=== PATIENT | female | born 1995 | race Caucasian/White ===

== ENCOUNTER 2024-07-03 07:38 | Inpatient (IN) ==
[2024-07-03] MEDS ORDERED: LIDOCAINE 1% LOCAL 20 ML VIAL INFIL PRN (07:47)
[2024-07-03] MEDS ORDERED: CALCIUM CARBONATE 500 MG CHEWABLE TAB PO PRN (07:47)
[2024-07-03] MEDS ORDERED: OXYTOCIN 30 UNITS/NSS 30 UNITS/500 ML BAG IV PRN (07:47)
[2024-07-03] MEDS ORDERED: Patient's ALLERGY Info needs ENTERED SCH (08:00)
[2024-07-03 08:24] LABS: Hematocrit (blood only) 37.8 % (37.0-47.0); Hemoglobin 13.3 g/dl (12.0-16.0); Mean Corpuscular Hemoglobin 30.8 pg (25.0-34.0); Mean Corpuscular Hgb Conc 35.2 g/dL (32.0-36.0); Mean Corpuscular Volume 87.5 fL (80.0-100.0); Mean Platelet Volume 11.2 fL (9.4-12.4); Platelet Count 196 K/uL (130-400); RDW Coefficient of Variation 12.1 % (11.5-14.5); RDW Standard Deviation 38.7 fL (36.4-46.3); Red Blood Count 4.32 M/uL (4.20-5.40); White Blood Count 10.68 K/ul (4.8-10.8)
[2024-07-03] MEDS: LACTATED RINGER'S 1,000 ML IV PRN (08:30)
--- NOTE | 2024-07-03 08:48 | History & Physical Report ---
Date of Service July 03, 2024 Assessment & Plan (1) Supervision of normal intrauterine in primigravida: (2) Gestational diabetes mellitus (GDM) affecting , antepartum: (3) Encounter for induction of labor: Plan Portillo bulb placed, pit started, pt desires epidural Rh+, gbs neg, ri, FHT cat 1 Admission and Anticipated Discharge Date Admission Date: July 03, 2024 History of Present Illness Primary Care Provider: Chava Verde MD Patient is a 28 y/o female G1 currently at 39w 3d with an ANDRES 07/06/24 as determined by LMP who is here for induction of labor. Her was complicated by gestational cholestasis and GDM. She has had regular appointments with OB. She denies fevers, fatigue, KOENIG, SOB, chest pain, leg swelling, or n/v exceeding baseline -related symptoms. Mild contractions; movement present; no fluid loss or bloody show External FHT and external uterine monitors used; category 1 tracing (baseline 145, mod variability, +acels, no decels) Blood type: A+ Antibody screen: Neg 1h GTT: 150 (04/23) GBS: Neg Rubella: Immune VDRL/RPR: Non-reactive Gonorrhea: Not detected Chalmydia: Not detected HIV: Non-reactive HbSAg: Non-reactive Allergies Allergy/AdvReac Type Severity Reaction Status Date / Time amoxicillin Allergy Intermediate Hives Verified 07/03/24 09:13 Home Medications Medication Instructions Recorded Confirmed Type acetone (urine) test (Ketone Urine #50 ea 05/11/24 07/02/24 Rx Test strips) blood sugar diagnostic (OneTouch #150 ea 05/11/24 07/02/24 Rx Verio test strips) blood-glucose meter (OneTouch #1 ea 05/11/24 07/02/24 Rx Verio Reflect Meter) lancets 33 gauge (OneTouch Delica #150 ea 05/11/24 07/02/24 Rx Plus Lancet) [id number] 1 mg 1 tab PO 1XD 07/03/24 07/03/24 History tablet Past Med/Surg History Problem List (Updated 07/03/24 @ 09:09 by Shannon Pacheco MD) Encounter for induction of labor Gestational diabetes mellitus (GDM) affecting , antepartum Encounter for anatomic survey Supervision of normal intrauterine in primigravida No significant past medical history Surgical History History of wisdom tooth extraction Pectus excavatum repaired Family History Grandmother (Maternal) Diabetes Denies family history of Ovarian cancer Breast cancer Colorectal cancer Uterine cancer Social History Smoking Status: Never smoker Second Hand Exposure: No; Do You Dip or Chew Tobacco: No; Hx Alcohol Use: No Hx Substance Use: No Preferred Language: Urdu Communication Ability: Effective Barge Engineer Required: No Beliefs That Will Affect Care: None marital status: marital status details: Deonte (29) [phone] Current Living Situation: Spouse Current Living Situation Comment: Pt lives with Zachary and dog Ayr current occupational status: employed current occupation: [employer] @ [employer]. Other Information That Helps Us Care for You: No Feels Safe at Home: Yes Safety Concerns: Feels Safe At This Time Assistive Devices: None Physical Exam 2 Physical Exam: General: Alert and oriented. No acute distress CV: Regular rate and rhythm. No murmurs. Respiratory: CTAB. No rhonchi, wheezes, or crackles. No increased work of breathing. Abdomen: Gravid: Soft, nontender upon palpation Pelvic: 1 / 75% / -2 / mid, soft, per Dr. Lindsay Lower extremities: NO LE edema. No deep calf pain. Results & Data Results & Data Vital Signs (Past 12 Hours) Vital Signs Temp Pulse Resp BP O2 Del Method 07/03/24 08:10 37.0 C 16 Room Air 07/03/24 07:46 101 H 127/79 Laboratory Results 07/03/24 08:07 8 AST: 21 ALT: 28 ALP: 195 (H) 07/01 Total bile acid: 10.3 (H) Cholic acid: 7.5 Deoxycholic: 0.6 Chenodeoxy: 2.2 Supervising Physician Co-Signing Physician Notes Resident Physician Supervision Note: I interviewed and examined the patient. Discussed with Dr. Schmitz and agree with findings and plan as documented in the note. Any exceptions or clarifications are listed here: Patient originally evaluated by me. fetus category one tracing occasional contractions. Permission received for portillo bulb placement. Patient placed in stirrups, cx was as noted in note. Speculum placed. portillo threaded through the cervix. Balloon filled with 30cc sterile water. Speculum removed. Tolerated procedure well. Will also be starting pitocin. Documented By: Rylie Lindsay MD, FACOG Resident Activity Tracking Resident Involvement: Resident Care Provided Care Provided: OB Delivery
[2024-07-03] MEDS ORDERED: Nursing to Pharmacy Communication SCH (09:00)
[2024-07-03] MEDS: OXYTOCIN 30 UNITS/NSS 30 UNITS/500 ML BAG IV PRN (09:24)
--- NOTE | 2024-07-04 05:48 | Labor Progress Brief Note ---
Date of Service July 04, 2024 Update slow progress with Pitocin she received a cervical Crowley in the morning went up to 20 milliunits of Pitocin we took a brief break of Pitocin to reset receptors and then restarted cervix exam and she has 4 cm had is finally well applied to the cervix artificial rupture of membranes for clear fluid 4 cm 80% - 3 patient will likely get an epidural discussed some progress although she is not truly in active labor yet so continue the current plan Assessment & Plan Admission and Anticipated Discharge Date Admission Date: July 03, 2024 Results & Data Vital Signs (Past 12 Hours) Vital Signs Temp Pulse Resp BP 07/04/24 04:41 68 110/64 07/04/24 03:47 98.1 F 65 16 112/67 07/04/24 02:41 72 118/63 07/04/24 02:02 76 111/57 L 07/04/24 00:41 76 16 115/56 L 07/03/24 23:39 72 117/74 07/03/24 22:54 97.9 F 69 16 105/61 07/03/24 20:59 64 18 119/63 07/03/24 20:00 65 117/69 07/03/24 18:58 98.2 F 75 16 121/70 07/03/24 18:30 18 07/03/24 18:30 18 07/03/24 18:00 74 113/70 Coding Level of Care Code None
[2024-07-04] MEDS ORDERED: diphenhydrAMINE 50 MG/ML VIAL IV PRN (06:01)
[2024-07-04] MEDS ORDERED: LIDOCAINE 2% MPF LOCAL 5 ML VIAL EPI PRN (06:01)
[2024-07-04] MEDS ORDERED: fentaNYL citrate PF 100 MCG/2 ML VIAL EPI PRN (06:01)
[2024-07-04] MEDS ORDERED: fentANYL 2 MCG/ML BUPIVacaine 0.125%-NSS 100ML BAG EPI PRN (06:01)
[2024-07-04] MEDS ORDERED: NALBUPHINE HCL 5 MG in SYRINGE 0 ML IV PRN (06:01)
[2024-07-04] MEDS ORDERED: ePHEDrine sulfate 50 MG/ML AMP IV PRN (06:01)
[2024-07-04] MEDS ORDERED: BUPIVACAINE 0.25% PF 30 ML VIAL EPI PRN (06:01)
[2024-07-04] MEDS ORDERED: SODIUM CHLORIDE 0.9% PF INJ 10 ML VIAL EPI PRN (06:01)
[2024-07-04] MEDS ORDERED: NALOXONE HCL 0.4 MG/1 ML VIAL/CARP IV PRN (06:01)
[2024-07-04] MEDS ORDERED: NALOXONE HCL 1 MG in SODIUM CHLORIDE 0.9% 1,000 ML IV PRN (06:01)
[2024-07-04] MEDS ORDERED: ROPIVACAINE 0.5% PF 5 MG/ML 20 ML VIAL EPI PRN (06:01)
--- NOTE | 2024-07-04 06:05 | Anesthesiology Consultation ---
Date of Service July 04, 2024 Assessment & Plan Chart Review Chart Review: Patient NOT seen in Pre Admission Testing and Acceptable Risk for Labor Epidural Consults Requested none ASA ASA2 Proposed Anesthesia Anesthesia Type: Labor Epidural Risk / Benefits Reviewed With: PT / POA / Parent / Guardian, Accepts Plan and Informed Consent Obtained History Height/Weight Height: 5 ft 2 in Weight: 60.328 kg Allergies Allergy/AdvReac Type Severity Reaction Status Date / Time amoxicillin Allergy Intermediate Hives Verified 07/03/24 09:13 Medications Home Medications Medication Instructions Recorded Confirmed Last Taken acetone (urine) test (Ketone Urine #50 ea 05/11/24 07/02/24 Unknown Test strips) blood sugar diagnostic (OneTouch #150 ea 05/11/24 07/02/24 Unknown Verio test strips) blood-glucose meter (OneTouch #1 ea 05/11/24 07/02/24 Unknown Verio Reflect Meter) lancets 33 gauge (OneTouch Delica #150 ea 05/11/24 07/02/24 Unknown Plus Lancet) [id number] 1 mg 1 tab PO 1XD 07/03/24 07/03/24 07/02/24 21:30 tablet Active Medications Generic Name Dose Route Start Last Admin Trade Name Freq PRN Reason Stop Dose Admin Oxytocin 30 units in 500 mls @ 19 mls/hr 07/03/24 07:47 07/04/24 05:30 Pitocin 30 Units/Nss IV 07/05/24 07:46 1.14 units/hr .Q24H PRN 19 mls/hr Labor Induction/Augmentation Titration Protocol 1.14 UNITS/HR Lactated Ringer's 1,000 mls @ 125 mls/hr 07/03/24 07:47 07/04/24 05:00 Lr IV 07/05/24 07:46 125 mls/hr .Q8H PRN Infusion L&D Protocol Protocol NPO Date Last Intake of Fluids: 07/04/24 Time Last Intake of Fluids: 06:00 Date Last Intake of Solids: 07/03/24 Time Last Intake of Solids: 22:00 Exercise / Class Metabolic Activity 1 > 8 Run/Swim/Ski/Tennis Past Family History Family History Grandmother (Maternal) Diabetes Denies family history of Ovarian cancer Breast cancer Colorectal cancer Uterine cancer Past Surgical History Surgical History History of wisdom tooth extraction Pectus excavatum repaired Past Anesthesia History No Hx of Anesthesia Complications and No Family Hx of Anesthesia Complications History of PONV No Hx of PONV and No Hx of Motion Sickness Social History Smoking Status: Never smoker Do You Dip or Chew Tobacco: No Hx Alcohol Use: No Hx Substance Use: No substance use type: does not use Review of Systems ROS Unobtainable: All systems reviewed & are unremarkable except as noted in HPI & below Physical Exam Vital Signs Last Vital Signs Temp 36.6 C 07/04/24 05:50 Pulse 87 07/04/24 05:57 Resp 18 07/04/24 05:50 BP 124/77 07/04/24 05:53 Pulse Ox 100 07/04/24 05:57 O2 Del Method Room Air 07/03/24 08:10 ENMT Mouth: no TMJ abnormality Thyromental Distance: > or= 3.5 Finger Breadths Mallampati Class: II Neck normal visual inspection and trachea midline; neck extension not limited Respiratory normal respiratory effort Auscultation: lungs clear to auscultation bilaterally Cardiovascular Rate/Rhythm: regular rate and regular rhythm Heart Sounds: no murmur Musculoskeletal Spine: normal cervical ROM Extremities: full ROM of extremities Neurologic moves all extremities Psychiatric Orientation: alert and oriented x 3 Testing Laboratory Results 07/03/24 08:07
[2024-07-04] MEDS: BUPIVACAINE 0.25% PF 30 ML VIAL ONE (06:22)
[2024-07-04] MEDS: LIDOCAINE 2%/EPINEPHRINE 1:200,000 20 ML PF ONE (06:22)
[2024-07-04] MEDS: fentaNYL citrate PF 100 MCG/2 ML VIAL ONE (06:22)
[2024-07-04] MEDS: fentANYL 2 MCG/ML BUPIVacaine 0.125%-NSS 100ML BAG ONE (06:23)
[2024-07-04] MEDS: SODIUM CHLORIDE 0.9% PF INJ 10 ML VIAL ONE (06:32)
[2024-07-04] MEDS: ePHEDrine sulfate 50 MG/ML AMP ONE (07:01)
[2024-07-04] MEDS: fentaNYL citrate PF 100 MCG/2 ML VIAL EPI STA (07:36)
[2024-07-04] MEDS: SODIUM CHLORIDE 0.9% PF INJ 10 ML VIAL EPI STA (07:36)
[2024-07-04] MEDS: BUPIVACAINE 0.25% PF 30 ML VIAL EPI STA (07:36)
[2024-07-04] MEDS: LIDOCAINE 2%/EPINEPHRINE 1:200,000 20 ML PF EPI STA (07:36)
--- NOTE | 2024-07-04 09:55 | Labor Progress Brief Note ---
Date of Service July 04, 2024 Subjective comfortable Assessment & Plan (1) Cholestasis during in third trimester: Plan making excellent progress, fetus category one. anticipate . Admission and Anticipated Discharge Date Admission Date: July 03, 2024 Physical Exam Physical Exam: cx--rim/0 toco--q2-3, ppit at 20 efm--120s with mod varibility, accels present, no decels, +scalp stim Results & Data Vital Signs (Past 12 Hours) Vital Signs Temp Pulse Resp BP Pulse Ox 07/04/24 09:52 87 99 07/04/24 09:47 74 99 07/04/24 09:42 97 07/04/24 09:42 72 07/04/24 09:42 65 113/63 07/04/24 09:37 75 97 07/04/24 09:32 67 99 07/04/24 09:30 18 07/04/24 09:30 36.8 C 18 07/04/24 09:28 65 112/63 07/04/24 09:27 67 100 07/04/24 09:22 66 98 07/04/24 09:17 69 99 07/04/24 09:13 63 109/58 L 07/04/24 09:12 63 100 07/04/24 09:07 63 99 07/04/24 09:02 88 99 07/04/24 08:57 67 111/62 99 07/04/24 08:52 69 98 07/04/24 08:47 65 99 07/04/24 08:42 67 99 07/04/24 08:41 63 111/63 07/04/24 08:37 67 100 07/04/24 08:32 64 100 07/04/24 08:28 82 124/59 L 07/04/24 08:27 69 98 07/04/24 08:25 18 07/04/24 08:25 36.6 C 18 07/04/24 08:22 69 100 07/04/24 08:17 61 100 07/04/24 08:12 99 07/04/24 08:12 72 07/04/24 08:12 80 118/73 07/04/24 08:07 65 99 07/04/24 08:02 73 99 07/04/24 07:57 67 100 07/04/24 07:56 63 117/71 07/04/24 07:52 61 96 07/04/24 07:47 60 97 07/04/24 07:42 97 07/04/24 07:42 62 07/04/24 07:42 67 117/71 07/04/24 07:37 60 98 07/04/24 07:32 59 L 97 07/04/24 07:27 54 L 118/72 98 07/04/24 07:22 60 97 07/04/24 07:17 68 100 07/04/24 07:12 97 07/04/24 07:12 62 07/04/24 07:12 64 123/74 07/04/24 07:07 81 99 07/04/24 07:02 68 98 07/04/24 07:00 36.6 C 18 07/04/24 07:00 18 07/04/24 07:00 36.6 C 18 07/04/24 06:57 71 99 07/04/24 06:52 71 116/76 100 07/04/24 06:47 65 119/80 100 07/04/24 06:42 70 99 07/04/24 06:41 71 121/75 07/04/24 06:37 98 07/04/24 06:37 70 07/04/24 06:37 65 118/71 07/04/24 06:32 82 97 07/04/24 06:31 74 16 124/75 07/04/24 06:30 75 121/71 07/04/24 06:27 98 07/04/24 06:27 82 07/04/24 06:27 78 16 121/70 07/04/24 06:24 71 18 127/72 07/04/24 06:22 72 99 07/04/24 06:21 96 H 121/79 07/04/24 06:18 89 113/67 07/04/24 06:17 91 H 100 07/04/24 06:12 86 99 07/04/24 06:07 83 100 07/04/24 06:02 88 100 07/04/24 05:57 87 100 07/04/24 05:53 67 124/77 07/04/24 05:52 71 99 07/04/24 05:50 18 07/04/24 05:50 36.6 C 18 07/04/24 04:41 68 110/64 07/04/24 03:47 36.7 C 65 16 112/67 07/04/24 02:41 72 118/63 07/04/24 02:02 76 111/57 L 07/04/24 00:41 76 16 115/56 L 07/03/24 23:39 72 117/74 07/03/24 22:54 36.6 C 69 16 105/61 Coding Level of Care Code None Diagnoses Cholestasis during in third trimester O26.643
[2024-07-04] MEDS: METHYLERGONOVINE MALEATE 0.2 MG/ML AMP ONE (13:15)
[2024-07-04] MEDS: miSOPROStoL 200 MCG TAB ONE (13:15)
--- NOTE | 2024-07-04 13:23 | Delivery Summary ---
Vaginal Delivery Summary Date of Service July 04, 2024 Vaginal Delivery Summary and 2nd Degree LAC Pre-operative Diagnosis: at 39 weeks choliestasis Post-operative Diagnosis: same Procedure: potrillo bulb pitocin induction epidural arom second degree laceration and repair qBL: 341 Anesthesia: epidural Procedure: The patient presented to labor and delivery for iol at 39 weeks for choliestasis. Got portillo bulb for ripening and pitocin. Progressed to 5cm for arom this am for clear fluid. She progressedto c/c/+1. The patient pushed for 2hours to deliver a viable female infant in boo position. The nose and mouth were bulb suctioned on the perineum and the rest of the was then delivered without difficulty. A loose nuchal cord was reduced. The baby was floppy at first but responded well to stimulation.. Cord was clamped and cut at one minute of life. Cord blood and segment obtained. Placenta delivered spontaneous, intact with a three vessel cord. Cervix/sulci/rectum were intact. A second degree perineal laceration was repaired in the normal standard fashion. Hemostasis obtained with dilute pitocin and fundal massage, IM methergine and 800mcg of rectal cytotec. Apgars were 8/9. Mother and baby doing well at the end of the delivery. [facility] Vaginal Delivery Charge Delivery Type Details: and 2nd Degree LAC
[2024-07-04] MEDS ORDERED: HYDROCORTISONE ACETATE 25 MG SUPP PR PRN (13:27)
[2024-07-04] MEDS ORDERED: ACETAMINOPHEN 325 MG TAB PO PRN (13:27)
[2024-07-04] MEDS ORDERED: oxyCODONE/ACETAMINOPHEN 5mg/325mg TAB PO PRN (13:27)
[2024-07-04] MEDS ORDERED: bisacodyL 10 MG SUPP PR PRN (13:27)
[2024-07-04] MEDS ORDERED: OXYTOCIN 30 UNITS/NSS 30 UNITS/500 ML BAG IV PRN (13:27)
[2024-07-04] MEDS: DIPHTHER/TETAN/PERTUS Vaccine (Tdap, Adol/Adult) 0.5mL IM ONE (13:40)
--- NOTE | 2024-07-04 14:08 | Anesthesia Procedure Note ---
Date of Service July 04, 2024 Anesthesia Post Epidural Note Vital Signs Vital Signs: Temp Pulse Resp BP Pulse Ox O2 Del Method 37.1 C 80 18 143/80 H 99 Room Air 07/04/24 11:28 07/04/24 13:56 07/04/24 11:28 07/04/24 13:56 07/04/24 13:17 07/03/24 08:10 Pain Intensity Bilateral Lower Abdomen: Pain Intensity: 4 Notes Mental Status: alert / awake / arousable and participated in evaluation Nausea / Vomiting: adequately controlled Pain: adequately controlled Airway Patency, RR, SpO2: stable & adequate BP & HR: stable & adequate Hydration State: stable & adequate Neuraxial Anesthesia: was administered and sensory block is resolving Anesthetic Complications: no major complications apparent and Pt Satisfied with anesthetic care Epidural: Removed without complications and With tip intact
[2024-07-04] MEDS: IBUPROFEN 600 MG TAB PO PRN (18:04)
[2024-07-04] MEDS: BENZOCAINE 20% SPRY 85 APPLN/85 GM CAN EXT PRN (18:04)
[2024-07-04] MEDS: DOCUSATE SODIUM 100 MG CAP PO ONE (19:56)
[2024-07-04] MEDS: DOCUSATE SODIUM 100 MG CAP PO SCH (21:46)
[2024-07-05 07:24] LABS: Hematocrit (blood only) 37.2 % (37.0-47.0); Hemoglobin 12.5 g/dl (12.0-16.0); Mean Corpuscular Hemoglobin 30.6 pg (25.0-34.0); Mean Corpuscular Hgb Conc 33.6 g/dL (32.0-36.0); Mean Platelet Volume 11.8 fL (9.4-12.4); Platelet Count 171 K/uL (130-400); RDW Coefficient of Variation 12.3 % (11.5-14.5); RDW Standard Deviation 40.4 fL (36.4-46.3); Red Blood Count 4.09 M/uL (4.20-5.40); White Blood Count 17.38 K/ul (4.8-10.8)
[2024-07-05] MEDS: PRENATAL VITAMIN 1 TAB PO SCH (08:22)
--- NOTE | 2024-07-05 09:33 | Obstetrical Progress Note ---
Date of Service July 05, 2024 Assessment & Plan (1) Encounter for assessment: visit type: exam and care immediately after delivery Qualified Code(s): Z39.0 - Encounter for care and examination of mother immedia tely after delivery Plan Doing well. Routine pp care. Day #:: 1 Subjective Ambulation: ambulating normally Voiding: no voiding problems Passing Gas:: Yes Diet Tolerance:: regular diet Lochia:: Small Feeding Type:: breast feeding Bottom sore, but pain meds and ice helping. Physical Exam Constitutional WD/WN, vitals as above Respiratory normal respiratory effort, lungs clear to auscultation Cardiovascular RRR, no murmur, no edema Extremities: no calf tenderness and no edema Gastrointestinal (Abdomen) soft, nt, nd ff/nt at u Psychiatric A+Ox3, euthymic affect Results & Data Vital Signs (Past 12 Hours) Vital Signs Temp Pulse Pulse Resp BP Pulse Ox O2 Del Method 07/05/24 03:20 36.7 C 60 18 125/55 L 98 Room Air 07/05/24 00:19 36.7 C 74 18 128/79 99 Room Air
[2024-07-05] MEDS: bisacodyL 5 MG TABEC PO SCH (22:44)
[2024-07-06 06:13] LABS: Hematocrit (blood only) 32.8 % (37.0-47.0); Hemoglobin 11.1 g/dl (12.0-16.0)
--- NOTE | 2024-07-06 07:23 | Obstetrical Progress Note ---
Date of Service July 06, 2024 Assessment & Plan (1) Encounter for assessment: visit type: exam and care immediately after delivery Qualified Code(s): Z39.0 - Encounter for care and examination of mother immedia tely after delivery Plan Doing well, plan d/c, instructions given. Day #:: 2 Subjective Ambulation: ambulating normally Voiding: no voiding problems Passing Gas:: Yes Diet Tolerance:: regular diet Lochia:: Small Feeding Type:: breast feeding Physical Exam Constitutional WD/WN, vitals as above Respiratory normal respiratory effort, lungs clear to auscultation Cardiovascular RRR, no murmur, no edema Gastrointestinal (Abdomen) soft, nt, nd ff/nt 1 below u Psychiatric A+Ox3, euthymic affect Results & Data Vital Signs (Past 12 Hours) Vital Signs Temp Pulse Resp BP Pulse Ox O2 Del Method 07/05/24 22:57 36.6 C 76 18 118/73 98 Room Air 07/05/24 20:30 36.5 C 92 H 18 106/66 97 Room Air
[2024-07-06 08:18] VITALS: BP 133/80; PULSE 72; RESP 16; TEMP 98.4; O2SAT 99
[2024-07-06] MEDS ORDERED: diphenhydrAMINE Capsule 25 MG CAP PO PRN (10:48)
== END 2024-07-06 13:00 | disposition home or self-care (01) | DRG 807 ==
LOC: 4S1 07:38 → 4E2 07-04 16:25